=== PATIENT | female | born 1950 | race Caucasian/White ===

== ENCOUNTER → 2017-07-18 | Outpatient (CLI) | payer BC, OTHER ==
[~2017-07-18] MED LIST: AMBEREN PO; BYSTOLIC 5 MG5 M1 PO; COLESTID1 GM PO; DOXEPIN 10 MG C10 MG PO; FISH OIL 1,0001 EAC5 PO; LYRICA 50 MG50 MG PO; MOBIC15 MG PO; NUCYNTA75 MG PO; PEPCID AC20 M1 PO; VITAMIN D1000 UNI1 PO; VITAMIN E400 UNIT PO; ZYRTEC 10 MG TA10 MG PO; [UNRECOGNIZED DRUG - OTHER] PO
== END ==
LOC: RAD 12:10
DX: M77.32 Calcaneal spur, left foot (principal)

== ENCOUNTER → 2018-03-27 | Outpatient (CLI) | payer OTHER, MEDICARE ==
--- NOTE | ~2018-03-27 | 2DMMODE ---
[facility] [place] [address] 2 D/M-MODE ECHOCARDIOGRAM Name: RODRÍGUEZ GARCIA Room #: REG [facility]#: [id number] Admission: 03/27/18 Attend Phys: Toby Reid MD Discharge: Date of : 52 Date of Service: 03/27/18 1209 Report #: [id number] THIS REPORT FOR: //name// APPROVED REPORT Study performed: 03/27/2018 10:21:10 EXAM: Comprehensive 2D, Doppler, and color-flow Echocardiogram Patient Location: Out-Patient Room #: Echo lab 2 Status: routine BSA: 1.90 HR: 85 bpm BP: 126/84 mmHg Rhythm: NSR Other Information Study Quality: Adequate Indications Pre-Op Hypertension/HDD 2D Dimensions RVDd: 30.50 mm IVSd: 11.57 (7-11mm) LVOT Diam: 17.59 (18-24mm) LVDd: 44.36 mm PWd: 11.54 (7-11mm) Ascending Ao: 28.16 (22-36mm) LVDs: 31.70 (25-40mm) Aortic Root: 23.90 mm IVC: 14.00 mm Volumes Left Atrial Volume (Systole) Single Plane 4CH: 41.11 mL Single Plane 2CH: 24.81 mL LA ESV Index: 19.00 mL/m2 Aortic Valve AoV Peak Shaka.: 1.56 m/s AO Peak Gr.: 9.73 mmHg LVOT Max P.16 mmHg LVOT Max V: 0.89 m/s RIKY Vmax: 1.38 cm2 Mitral Valve E/A Ratio: 0.8 MV Decel. Time: 230.64 ms [facility] [place] [address] [place] [address] 2 D/M-MODE ECHOCARDIOGRAM Name: RODRÍGUEZ GARCIA Room #: REG [facility]#: [id number] Admission: 03/27/18 Attend Phys: Toby Reid MD Discharge: Date of : 52 Date of Service: 03/27/18 1209 Report #: [id number] MV E Max Shaka.: 0.81 m/s MV A Shaka.: 0.96 m/s MV PHT: 66.89 ms IVRT: 145.33 ms Pulmonary Valve PV Peak Shaka.: 1.15 m/s PV Peak Gr.: 5.29 mmHg Pulmonary Vein P Vein S: 0.55 m/s P Vein A: 0.26 m/s P Vein D: 0.39 m/s P Vein A Dur.: 90.0 msec P Vein S/D Ratio: 1.41 Left Ventricle The left ventricle is normal size. Mild concentric left ventricular hypertrophy. The left ventricular systolic function is normal. The left ventricular ejection fraction is within the normal range. LVEF is 50-55%. Grade I - abnormal relaxation pattern. Right Ventricle The right ventricle is normal size. The right ventricular systolic function is normal. Atria The left atrium size is normal. The right atrium size is normal. Aortic Valve The aortic valve is normal in structure. No aortic regurgitation is present. There is no aortic valvular stenosis. Mitral Valve The mitral valve is normal in structure. There is no mitral valve regurgitation noted. No evidence of mitral valve stenosis. Tricuspid Valve The tricuspid valve is normal in structure. There is no tricuspid valve regurgitation noted. Pulmonic Valve The pulmonary valve is normal in structure. Trace pulmonic regurgitation. Great Vessels The aortic root is normal in size. IVC is normal in size and collapses >50% with inspiration. [facility] [address] [place] [address] 2 D/M-MODE ECHOCARDIOGRAM Name: NAVEENKLEVERRODRÍGUEZ Room #: REG [facility]#: [id number] Admission: 03/27/18 Attend Phys: Toby Reid MD Discharge: Date of : 52 Date of Service: 03/27/18 1209 Report #: [id number] Pericardium There is no pericardial effusion. <Conclusion> The left ventricle is normal size. Mild concentric left ventricular hypertrophy. The left ventricular systolic function is normal. Grade I - abnormal relaxation pattern. The right ventricle is normal size. The left atrium size is normal. The aortic valve is normal in structure. The mitral valve is normal in structure. There is no tricuspid valve regurgitation noted. <ELECTRONICALLY SIGNED> By: Toby Reid MD 03/27/181208 08 08 Toby Reid MD /INF
== END ==
LOC: NUC 07:13
DX: Z01.818 Encounter for other preprocedural examination (principal); I10 Essential (primary) hypertension; I44.7 Left bundle-branch block, unspecified; R94.31 Abnormal electrocardiogram [ECG] [EKG]; R06.00 Dyspnea, unspecified; E78.5 Hyperlipidemia, unspecified

== ENCOUNTER → 2018-05-18 | Outpatient (CLI) | payer OTHER, MEDICARE | LOC: RAD 12:25 | DX: R06.09 Other forms of dyspnea (principal) ==

== ENCOUNTER → 2019-03-22 | Outpatient (CLI) | payer OTHER, MEDICARE ==
--- NOTE | 2019-03-22 14:50 | 2DMMODE ---
[facility] [place] [address] 2 D/M-MODE ECHOCARDIOGRAM Name: RODRÍGUEZ GARCIA Room #: REG [facility]#: [id number] Admission: 03/22/19 Attend Phys: Toby Reid MD Discharge: Date of : 52 Report #: [id number] THIS REPORT FOR: //name// APPROVED REPORT Study performed: 03/22/2019 12:54:36 EXAM: Comprehensive 2D, Doppler, and color-flow Echocardiogram Patient Location: Out-Patient Status: routine BSA: 1.90 HR: 86 bpm BP: 120/76 mmHg Rhythm: LBBB Other Information Study Quality: Adequate Indications Left bundle branch block. 2D Dimensions RVDd: 28.78 mm IVSd: 11.00 (7-11mm) LVOT Diam: 20.49 (18-24mm) LVDd: 49.75 mm PWd: 11.00 (7-11mm) Ascending Ao: 33.96 (22-36mm) LVDs: 36.40 (25-40mm) Aortic Root: 32.77 mm Volumes Left Atrial Volume (Systole) Single Plane 4CH: 34.76 mL Single Plane 2CH: 37.83 mL LA ESV Index: 21.00 mL/m2 Aortic Valve AoV Peak Shaka.: 1.82 m/s AO Peak Gr.: 13.32 mmHg LVOT Max P.02 mmHg LVOT Max V: 1.12 m/s RIKY Vmax: 2.02 cm2 Mitral Valve E/A Ratio: 1.2 MV Decel. Time: 147.78 ms MV E Max Shaka.: 1.06 m/s [facility] [address] [place] [address] 2 D/M-MODE ECHOCARDIOGRAM Name: RODRÍGUEZ GARCIA Luisa Room #: REG [facility]#: [id number] Admission: 03/22/19 Attend Phys: Toby Reid MD Discharge: Date of : 52 Report #: [id number] MV A Shaka.: 0.86 m/s MV PHT: 42.85 ms IVRT: 59.98 ms Pulmonary Valve PV Peak Shaka.: 1.18 m/s PV Peak Gr.: 5.57 mmHg Pulmonary Vein P Vein S: 0.82 m/s P Vein A: 0.24 m/s P Vein D: 0.62 m/s P Vein S/D Ratio: 1.32 Tricuspid Valve RAP Estimate: 5.00 mmHg Left Ventricle The left ventricle is normal size. Paradoxical septal motion consistent with conduction abnormality. Borderline concentric left ventricular hypertrophy. Left ventricular systolic function is normal. LVEF is 50-55%. Moderate diastolic dysfunction is present (pseudonormal filling). Right Ventricle The right ventricle is normal size. The right ventricular systolic function is normal. Atria The left atrium size is normal. The right atrium size is normal. Aortic Valve The aortic valve is normal in structure. No aortic regurgitation is present. There is no aortic valvular stenosis. Mitral Valve The mitral valve is normal in structure. Mild mitral regurgitation. Tricuspid Valve The tricuspid valve is normal in structure. There is no tricuspid valve regurgitation noted. Unable to assess PA pressure. Pulmonic Valve The pulmonary valve is normal in structure. There is no pulmonic valvular regurgitation. [facility] [place] [address] [place] [address] 2 D/M-MODE ECHOCARDIOGRAM Name: RODRÍGUEZ GARCIA Luisa Room #: REG [facility]#: [id number] Admission: 03/22/19 Attend Phys: Toby Reid MD Discharge: Date of : 52 Report #: [id number] Great Vessels The aortic root is normal in size. The ascending aorta is normal in size. IVC is normal in size and collapses >50% with inspiration. Pericardium There is no pericardial effusion. <Conclusion> The left ventricle is normal size. Left ventricular systolic function is normal. Moderate diastolic dysfunction is present (pseudonormal filling). Paradoxical septal motion consistent with conduction abnormality. The right ventricle is normal size. The left atrium size is normal. The aortic valve is normal in structure. Mild mitral regurgitation. There is no tricuspid valve regurgitation noted. <ELECTRONICALLY SIGNED> By: Toby Reid MD 03/22/19 1450 49 49 Toby Reid MD /DANIELLE
== END ==
LOC: CV 12:18
DX: I34.0 Nonrheumatic mitral (valve) insufficiency (principal); Z88.8 Allergy status to other drugs, medicaments and biological substances

== ENCOUNTER → 2019-11-20 | Outpatient (CLI) | payer OTHER, MEDICARE | LOC: SJCVC 13:29 | PROVIDERS: ATTEND Internal Medicine Cardiovascular Disease | DX: R94.31 Abnormal electrocardiogram [ECG] [EKG] (principal); I44.7 Left bundle-branch block, unspecified; I47.2 Ventricular tachycardia; R07.9 Chest pain, unspecified; R06.09 Other forms of dyspnea; I10 Essential (primary) hypertension; E78.00 Pure hypercholesterolemia, unspecified ==

== ENCOUNTER → 2019-11-29 | Outpatient (CLI) | payer OTHER, MEDICARE | LOC: SJCVCIMAG 09:10 | PROVIDERS: ATTEND Internal Medicine Cardiovascular Disease | DX: I44.7 Left bundle-branch block, unspecified (principal); R00.0 Tachycardia, unspecified; I25.10 Atherosclerotic heart disease of native coronary artery without angina pectoris; I47.2 Ventricular tachycardia; I10 Essential (primary) hypertension; E78.00 Pure hypercholesterolemia, unspecified; M15.9 Polyosteoarthritis, unspecified; E78.5 Hyperlipidemia, unspecified; Z88.8 Allergy status to other drugs, medicaments and biological substances; Z79.899 Other long term (current) drug therapy ==

== ENCOUNTER → 2020-05-22 | Outpatient (CLI) | payer OTHER, MEDICARE | LOC: SJCVC 12:41 | PROVIDERS: ATTEND Internal Medicine | DX: E78.00 Pure hypercholesterolemia, unspecified (principal) ==

== ENCOUNTER → 2020-11-25 | Outpatient (CLI) | payer OTHER, MEDICARE | LOC: SJCVC 12:55 | PROVIDERS: ATTEND Internal Medicine Cardiovascular Disease | DX: R94.31 Abnormal electrocardiogram [ECG] [EKG] (principal); I45.4 Nonspecific intraventricular block; I47.2 Ventricular tachycardia; R07.9 Chest pain, unspecified; R06.00 Dyspnea, unspecified; I10 Essential (primary) hypertension; E78.00 Pure hypercholesterolemia, unspecified; Z79.899 Other long term (current) drug therapy; Z72.89 Other problems related to lifestyle; Z88.8 Allergy status to other drugs, medicaments and biological substances ==

== ENCOUNTER → 2020-12-30 | Outpatient (CLI) | payer OTHER, MEDICARE | LOC: RAD 11:17 | PROVIDERS: ATTEND Nurse Practitioner | DX: R05 Cough (principal) ==

== ENCOUNTER → 2021-01-13 | Outpatient (CLI) | payer OTHER, MEDICARE | LOC: CAT 10:06 | PROVIDERS: ATTEND Nurse Practitioner | DX: R06.00 Dyspnea, unspecified (principal); R74.8 Abnormal levels of other serum enzymes; R05 Cough ==